=== PATIENT | female | born 1985 | race Caucasian/White ===

== ENCOUNTER 2024-06-21 20:15 | Emergency (ER) | payer OTHER, SELFPAY ==
--- NOTE | 2024-06-21 20:21 | ED_ITS ---
<Statement entered by Deniz Jacobs MD - 06/21/24 22:50> KORY Attestation I was consulted by the KORY, and we discussed the complexity of problems being addressed. I approved the treatment and management plan for this patient's care in the emergency department, thus performing a substantial portion of the medical decision making. Deniz Jacobs MD Discharge Plan Disposition Patient Disposition: Home, Self-Care Condition: Good Prescriptions Prescriptions: New hydrocortisone 1 % cream 1 applic topical BID 7 Days Qty: 28.35 0RF Referrals Follow up/Referrals: Vanda Zarco MD [Referring] - See instructions (Dermatitis) Activity Restrictions/Add. Instructions Additional Instructions/Restrictions: I have prescribed you a hydrocortisone cream. Please apply a thin layer twice a day. I have also referred you to dermatology. Please call tomorrow to schedule your appointment. If you have continued new or worsening signs or symptoms follow-up with your PCP return to the ER as needed. Clinical Impressions Clinical Impression: Dermatitis Instructions Patient Instructions: DI for Skin Abscess Print Language Print Language: Faroese Discharge ED Provider: Deniz Jacobs General Adult HPI <TREY Mills - Last Filed: 06/21/24 20:41> General Chief complaint: Skin/Abscess/Foreign Body Stated complaint: Rash on right arm Time Seen by Provider: 06/21/24 20:21 History of Present Illness HPI narrative: Patient presents for evaluation of a rash. Patient states that she has had a itchy rash for at least 3 to 4 weeks. Seems to be primary located on her right upper extremity but to a lesser extent on her left upper extremity as well. Located primarily on the hands however on the right it is located on the volar surface of her forearm. It is itchy and not responsive to treatment. Patient does do dishes at least twice a day every day but denies skin cracking pain fever chills hemoptysis hematochezia melena nausea vomiting diarrhea exposure to known chemical irritants. Related Data Previous Rx's ?Medication ?Instructions ?Recorded hydrocortisone 1 % topical cream 1 applic topical BID rash 1 week 06/21/24 #28.35 grams Allergies Allergy/AdvReac Type Severity Reaction Status Date / Time No Known Allergies Allergy Verified 06/21/24 20:37 PFSH <TREY Mills - Last Filed: 06/21/24 20:41> [facility] Disclaimer: The information contained in this section may have been updated after the patient was seen, as this information can be updated by other users. Social History (Updated 06/21/24 @ 20:41 by TREY Mills) Smoking Status: Current every day smoker alcohol intake: never current occupational status: employed Travel in the last 8 weeks: None Have you lived/traveled outside [place] in past 30 days?: No Contact w/someone who lives/traveled outside [place] past 30 days?: No Exposure to someone with infectious disease in past 14 days?: No Do you have a fever (greater than 100.4 F or 38 C)?: No Have you tested positive for COVID-19: No Exposed to someone with COVID-19 in past 14 days?: No Do you have a sore throat?: No Do you have a cough?: No Do you have any weakness?: No Do you have any diarrhea?: No Are you experiencing any unusual bleeding?: No Do you have any muscle aches/pain?: No Do you have any abdominal pain?: No Are you experiencing loss of taste or smell?: No <TREY Mills - Last Filed: 06/21/24 20:41> ROS Obtained: Yes Systems reviewed as appropriate & no additional complaints except as documented Physical Exam <TREY Mills - Last Filed: 06/21/24 20:41> General General appearance: alert and in no apparent distress Respiratory Respiratory exam: Present normal lung sounds bilaterally Cardiovascular Cardiovascular exam: Present regular rate and +S2 Neurological Exam Neurological exam: Present alert and oriented X3 <Deniz Jacobs MD - Last Filed: 06/21/24 22:50> Skin Skin exam: Present dry and rash (Scaling, mildly erythematous, no mucosal involvement or sloughing) Medical Decision Making <TREY Mills - Last Filed: 06/21/24 20:41> Medical Records Medical records reviewed: Yes I reviewed the patient's medical records. Screening: Per USPSTF and CDC recommendations, given the prevalence of disease in our region, it is our hospital?s policy to screen for HIV and viral Hepatitis for all patients aged 18 and over and those with ongoing risk factors. Dm Inquiry Pt receiving controlled substance: No Vital Signs: 06/21/24 20:25 06/21/24 20:45 Temperature 97.8 F 97.8 F Temperature Source Oral Oral Pulse Rate 86 Pulse Rate [Right Brachial] 86 Respiratory Rate 16 20 Blood Pressure 144/85 H Blood Pressure [Right Arm] 144/85 H Blood Pressure Mean [Right Arm] 104 Blood Pressure Source Automatic Cuff Blood Pressure Source [Right Arm] Automatic Cuff Blood Pressure Position Sitting Blood Pressure Position [Right Arm] Sitting 02 Sat by Pulse Oximetry 99 Oxygen Delivery Method Room Air Room Air Medical Decision Narrative: In summary patient is a 39-year-old female who presents to the emergency department for evaluation of dermatitis. Patient is hemodynamically stable upon arrival, afebrile. Zickel exam is remarkable for papular rash on both distal upper extremities right greater than left. Located primarily on the backs of the hands and on the volar surface of her right forearm. There is no induration erythema excoriations. She neurovascular tact distally full range of motion. Is no edema noted. Differential diagnosis includes contact dermatitis versus eczema or other atopic dermatitis. Initial workup was considered however patient has no joint swelling no red flags indicating systemic symptoms thus DOHERTY deferred. Initial interventions included topical steroid cream however we do not have any available in our [facility] currently thus no interventions for now in the ER. Given the lack of systemic symptoms and no need for further in vestigation patient will is appropriate for discharge with a prescription for a topical steroid and referral to dermatology for ongoing management and care and close follow-up with her PCP for ongoing new or worsening signs or symptoms. <Deniz Jacobs MD - Last Filed: 06/21/24 22:50> Vital Signs: 06/21/24 20:25 06/21/24 20:45 Temperature 97.8 F 97.8 F Temperature Source Oral Oral Pulse Rate 86 Pulse Rate [Right Brachial] 86 Respiratory Rate 16 20 Blood Pressure 144/85 H Blood Pressure [Right Arm] 144/85 H Blood Pressure Mean [Right Arm] 104 Blood Pressure Source Automatic Cuff Blood Pressure Source [Right Arm] Automatic Cuff Blood Pressure Position Sitting Blood Pressure Position [Right Arm] Sitting 02 Sat by Pulse Oximetry 99 Oxygen Delivery Method Room Air Room Air Critical Care <TREY Mills - Last Filed: 06/21/24 20:41> Critical Care Time Critical Care Time: No
[2024-06-21 20:25] VITALS: BP 144/85; PULSE 86; RESP 16; TEMP 36.6; O2SAT 99; BMI 32.3
[2024-06-21 20:45] VITALS: BP 144/85; PULSE 86; RESP 20; TEMP 36.6; O2SAT 99
== END 2024-06-21 20:49 | disposition home or self-care (01) ==
LOC: ER 20:43
PROVIDERS: Emergency Provider Student in an Organized Health Care Education/Training Program
DX: L30.9 Dermatitis, unspecified (principal); L29.9 Pruritus, unspecified
CPT/HCPCS: 99283

== ENCOUNTER 2024-10-01 12:41 | Outpatient (CLI) | payer OTHER, SELFPAY ==
--- OUTSIDE RECORDS SUMMARY | 2024-10-01 12:44 | XMS_ITS | Clinical Summary ---
Author Organization [facility] Address [address] [place] [id number] Phone [email or web address] Care Team Providers Care Bingo Checker Name Role Phone Unavailable Primary Care Provider Unavailabl e Allergies No known active allergies Medications No known medications Active Problems No known active problems Social History Tobacco Use Types Packs/Day Years Used Date Smoking Tobacco: Every Day Cigarettes Smokeless Tobacco: Never Intimate Partner Violence Answer Date R ecorded Insults You Not on file 06/17/2020 Threatens You Not on file 06/17/2020 Screams at You Not on file 06/17/2020 Physically Hurt Not on file 06/17/2020 Intimate Partner Violence Score Not on file 06/17/2020 Stress Answer Date Recorded Stress in your Life Not on file 01/07/2024 Dealing with Stress 3 01/07/2024 Comments Unknown Sex and Gender Information Value Date Recorded Sex Assigned at Not on file 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 Gender Identity Not on file Sexual Orientation Not on file Last Filed Vital Signs Vital Sign Reading Time Taken Comments Blood Pressure 142/93 03/23/2020 9:47 AM EST Pulse 105 03/23/2020 9:47 AM EST Temperature 35.9 C (96.7 F) 03/23/2020 9:47 AM EST Respiratory Rate - - Oxygen Saturation 95% 03/23/2020 9:47 AM EST Inhaled Oxygen Concentration - - Weight - - Height - - Body Mass Index - - Plan of Treatment Health Maintenance Due Date Last Done Comments Dental Cleaning/Exam 1985 HIV Screening 1985 Hepatitis C Screening 1985 Cervical Cancer Screening 2001 Annual Preventive Exam 2003 Hep B Infection Screening - Triple Screen 2003 Hepatitis B Immunization (1 of 3 - 19+ 3-dose series) 2004 Pneumococcal: Ped (0 to 5 Yr s) and At-Risk Member (6 to 64 Yrs) (1 of 2 - PCV) 2004 Tetanus Diphtheria and Pertu ssis Immunization (1 - Tdap) 2004 Covid-19 Immunization (1 - 2 season) 2023 Influenza Immunization (#1) 2024 HIB Immunization Aged Out No longer e ligible based on patient's age to complete this topic HPV Immunization Aged Out No longer e ligible based on patient's age to complete this topic Hepatitis A Immunization Aged Out No longer eligible based on patient's age to complete this topic Polio Immunization Aged Out No longer eligible based on patient's age to complete this topic Varicella Immunization Aged Out No lo nger eligible based on patient's age to complete this topic Insurance OPT OUT NO COPAY NB
[2024-10-01 13:24] LABS: Hematocrit 37.4 % (37.0-47.0); Hemoglobin 12.3 g/dL (12.2-16.2); Immature Granulocytes % 0.3 %; Mean Corpuscular HGB Conc 32.9 g/dL (31.8-35.4); Mean Corpuscular Hemoglobin 30.3 pg (27.0-31.2); Mean Corpuscular Volume 92.1 fl (81-99); Nucleated Red Blood Cells % 0 %; Platelet Count 269 K/mm3 (142-424); Red Blood Count 4.06 M/mm3 (4.20-5.40); Red Cell Distribution Width-SD 42.8 fL; White Blood Count 6.1 K/mm3 (4.8-10.8)
[2024-10-01 13:50] LABS: Alanine Aminotransferase 18 U/L (12-78); Albumin Level 3.9 g/dl (3.5-5.0); Albumin/Globulin Ratio 1.8 (1.1-1.8); Alkaline Phosphatase 89 U/L (38-126); Anion Gap 7.9 mEq/L (5-15); Aspartate Amino Transferase 21 U/L (14-36); Blood Urea Nitrogen 7 mg/dl (7-17); Calcium 9.4 mg/dl (8.4-10.2); Carbon Dioxide 29 mmol/L (22.0-30.0); Chloride 107 mmol/L (98-107); Cholesterol 186 mg/dl (140-200); Creatinine,Serum 0.60 mg/dl (0.52-1.04); Estimated Glomerular Filt Rate 111 ml/min (>60); GFR (African American) 135 ML/MIN (>60); Globulin 2.2 g/dL (1.3-3.2); Glucose 89 mg/dl (74-100); HDL Cholesterol 51 mg/dl (40-60); Potassium 3.9 mmoL/L (3.5-5.1); Sodium 140 mmol/L (136-145); Total Protein,Serum 6.1 g/dl (6.3-8.2); Triglycerides 113 mg/dl (30-150)
[2024-10-01 14:06] LABS: Free T4 (Free Thyroxine) 1.02 ng/dl (0.78-2.19)
[2024-10-01 14:08] LABS: 25-OH Vitamin D, Total 21.8 ng/mL (30-100)
[2024-10-01 14:10] LABS: Bilirubin,Total 0.1 mg/dl (0.2-1.3)
[2024-10-01 14:23] LABS: Thyroid Stimulating Hormone 1.05 uIU/mL (0.465-4.68)
[2024-10-01 14:41] LABS: Vitamin B12 297 pg/mL (239-931)
[2024-10-01 15:11] LABS: Folate 9.77 ng/mL
[2024-10-01 15:54] LABS: Hemoglobin A1C 5.5 % (4.0-6.0)
== END 2024-10-01 23:59 | disposition home or self-care (01) ==
LOC: LAB 12:42
PROVIDERS: PCP Physician Assistant; Visit Provider Physician Assistant
DX: Z00.00 Encounter for general adult medical examination without abnormal findings (principal); R45.84 Anhedonia; R73.03 Prediabetes
CPT/HCPCS: 36415; 80053; 80061; 82043; 82306; 82570; 82607; 82746; 83036; 84439; 84443; 85025